=== PATIENT | male | born 1935 | race Caucasian/White ===

== ENCOUNTER 2024-03-04 00:58 | Inpatient (IN) | payer MEDICARE, BC, SELFPAY ==
[2024-03-03 18:47] VITALS: BP 137/94; BMI 24.4
[2024-03-03 19:06] LABS: % Basophils 0.4 % (0-2); % Eosinophils 1.5 % (0-6); % Immature Granulocytes 0.3 % (0-0.5); % Lymphocytes 12.5 % (20.5-51.1); % Monocytes 7.2 % (1.7-9.3); % Neutrophils 78.1 % (42.2-75.2); Absolute Basophils 0.1 10^3/uL (0-0.2); Absolute Eosinophils 0.2 10^3/uL (0-0.7); Absolute Lymphocytes 1.7 10^3/uL (1.2-3.4); Absolute Neutrophils 10.6 10^3/uL (1.4-6.5); Hemoglobin 13.7 g/dL (13.0-18.0); Mean Corp Hgb Conc. 36.1 g/dL (33.0-37.0); Mean Corpuscular Hgb 31.7 pg (27.0-31.0); Mean Platelet Volume 10.3 fL (7.4-10.4); Nucleated Red Blood Cells % 0 % (-); Platelet Count 169 10^3/uL (130-400); Red Blood Cell Count 4.32 10^6/uL (4.70-6.10); Red Cell Dist. Width 12.7 % (11.5-14.5); White Blood Cell Count 13.5 10^3/uL (4.8-10.8)
[2024-03-03 19:28] LABS: ALT (SGPT) 29 U/L (0-50); AST (SGOT) 31 U/L (17-59); Albumin 4.3 g/dl (3.5-5.0); Alkaline Phosphatase 74 U/L (38-126); Blood Urea Nitrogen 22 mg/dl (9-20); Calcium 9.4 mg/dl (8.4-10.2); Carbon Dioxide 26 mmol/L (22-30); Estimated Creatinine Clearance 78 ml/min; Glucose 127 mg/dl (70-99); eGFR > 60.00
--- NOTE | 2024-03-03 19:58 | ED.GENMED ---
History of Present Illness
General
Chief Complaint: Fall
Source: patient
Exam Limitations: none
Time Seen by Provider: 03/03/24 19:38
Travel History
Have you had any contact with someone who has COVID-19?: No
Do you have any symptoms of coronavirus? Fever > 100 degrees, chills, cough, shortness of breath, sore throat, loss of taste or smell, muscle aches, or headache?: No
History of Present Illness
History of Present Illness:
This is a 88 year old male that comes in with c/o fall. States that he was carrying groceries form his car. States that he put them down as he just felt funny. State that the next thing he knew he fall face down and couldn't stand up. States that he
believed he was conscious through the entire time but not sure. States that this happened about 3:30pm today. States that he also cut his nose. Denies any fever, chills, chest pain, SOB, abd pain, nausea, vomiting, diarrhea, headache, dizziness,
urinary burning.
Past History
Past History
ED Past Medical History: HTN, Hypercholesterolemia and [place]
ED Past Surgical History: Cardiac (Stent)
Social History
Tobacco: Non-smoker
Alcohol: Occasional
Personal:
Living: alone
Review of Systems
Review of Systems
All Other Systems: ROS reviewed and negative except as documented in HPI and ROS
Constitutional: Reports no symptoms; Denies fever or chills
EENT: Reports no symptoms
Respiratory: Reports no symptoms; Denies cough or trouble breathing
Cardiac: Reports no symptoms; Denies chest pain
ABD/GI: Reports no symptoms; Denies abdominal pain, nausea, vomiting or diarrhea
: Reports no symptoms; Denies dysuria, frequency or urgency
Musculoskeletal: Reports no symptoms
Skin: Reports other (bridge of nose abrasion)
Neurological: Reports no symptoms; Denies dizzy or headache
Psychiatric: Reports no symptoms
Phy Exam
General Physical Exam
General Presentation: no apparent distress (saw patient walk into his stretcher. )
General age: appears stated age
General Skin: warm and dry
General Habitus: elderly
General Mental: alert
General Hydration: appears well hydrated
ENT Exam
ENT Exam: TM's normal, pharynx normal and neck supple
Eye Exam
Eye Exam: EOMI
Cardiovascular Exam
Cardiovascular Exam: regular rate/rhythm, no edema and normal peripheral pulses
Pulmonary Exam
Pulmonary Exam: lungs clear, no respiratory distress, no rales, chest non tender, no crackles, no rhonchi, no wheezing and no cough
Gastrointestinal Exam
Gastrointestinal Exam: normal bowel sounds, non tender, soft, no organomegaly, no pulsatile mass and non distended
Musculoskeletal Exam
Musculoskeletal Exam: full ROM, no edema and other (Negative cervical neck tenderness or spinal tenderness. Patient move all extremites. Negative discomfort with flexion of the knee's, inversion and eversion. )
Skin Exam
Skin Exam: normal color, warm/dry, no rash, no petechia and other (Abrasion to the bridge of the nose Old contusion noted on the left lower frontal neck)
Psychiatric Exam
Psychiatric Exam: normal mood/affect
Course
Orders/Labs/Results
Orders:
Orders
03/03/24 18:51
Electrocardiogram (*1) Urgent
Reason for Study: Vertigo / Dizzy
EKG- Treatment ONCE
03/03/24 18:59
CMP [Comprehensive Metabolic Panel] Urgent
Complete Blood Count/With Diff Urgent
03/03/24 19:57
CT Cervical Spine W/o Iv Contr Urgent
Comment:
Reason For Exam: Fall, neck pain
03/03/24 19:58
CT Head W/o Iv Contrast Urgent
Comment:
Reason For Exam: Fall hitting face and head, Possible syncope
Orthostatic VS- Treatment ONCE
0.9% Sodium Chloride 500 ml [Nss] 500 ml IV BOLUS
03/03/24 20:13
Troponin I Urgent
03/03/24 20:40
Naproxen [Naprosyn] 500 mg PO NOW STA
03/03/24 22:32
Neurosurgery Consult Urgent
Consulting Provider: Chris Live
Was physician already notified: Yes
Abnormal Lab Results
03/03/24
18:59
WBC 13.5 H 10^3/uL
(4.8-10.8)
RBC 4.32 L 10^6/uL
(4.70-6.10)
Hct 38.0 L %
(39.0-52.0)
MCH 31.7 H pg
(27.0-31.0)
Absolute Neuts (auto) 10.6 H 10^3/uL
(1.4-6.5)
Absolute Monos (auto) 1.0 H 10^3/uL
(0.1-0.6)
Neutrophils % 78.1 H %
(42.2-75.2)
Lymphocytes % 12.5 L %
(20.5-51.1)
Sodium 132 L mmol/L
(135-145)
Chloride 97 L mmol/L
(98-107)
BUN 22 H mg/dl
(9-20)
Glucose 127 H mg/dl
(70-99)
03/03/24 18:59
03/03/24 18:59
Leukocytosis, Dehydration. Glucose nonfasting. Troponin <0.012
Vital Signs
Initial and Last Documented VS:
Initial Vital Signs
Temp Pulse Resp BP Pulse Ox
98.5 F 84 16 137/94 95
03/03/24 18:47 03/03/24 18:47 03/03/24 18:47 03/03/24 18:47 03/03/24 18:47
Last Documented Vital Signs
Temp Pulse Resp BP Pulse Ox
98.5 F 84 16 137/94 95
03/03/24 18:47 03/03/24 18:47 03/03/24 18:47 03/03/24 18:47 03/03/24 18:47
Flight Operations Specialist consulted with Physician
Flight Operations Specialist consulted with physician?: Yes
Name of Physician Consulted: Dr. Jim
MDM/Problems Addressed
Differential Diagnosis Includes:
Syncope, Fall ,
MDM/Problems Addressed:
This is a 88 year old male that comes in with c/o fall. States that he wad bringing in groceries and he felt funny so he put them down. States that he then fell forward hitting his face. states that he was unable to get up. States that he believes
he was awake the whole time but no sure.
Will get labs. CT head and neck, give IV fluids and ECG. Will also get Orthostatic vitals.
CT cervical spine cont- Mild spinal cord compression and central canal stenosis. Severe bilateral neural foraminal narrowing at C4/C5. Bilateral osseous fusion across the C2/C3 and C3/C4 facet joints .
back to see patient and family. Patient was orthostatic when checked. Patient was given IV fluids. Explained that his CT shows that there could be a fracture of the cervical spine. Will place patient on a Collar and admit to hospitalist. Will also
place Neurosurgery on Consult
Chronic conditions affecting care:
NA
Acute Exacerbation and/or Progression of Chronic Illness:
NA
*Radiology
Radiology exam reviewed: radiology read reviewed (CT head-NO CTA evidence for acute intracranial hemorrhage, calvarial frcture, or scalp soft tissue hematoma. 2.9cm partially calcified extra-axial mass in the medial aspect of the right middle
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 7.5mm chronic lacunar infarct in the left
caudate nucleus. 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 CT cervical spine-Subacute to chronic transverse nondisplaced Type II dens fracture with a large ) and other (CT cont amount of sclerosis surrounding
the fracture line. Severe thickening of the transverse ligament posterior to the dens causing mild spinal cord compession. Moder multilvel discogenic degenerative disease throughout the cervical spine with multilevel disc-osteophyte complexes
causing mild s)
*Pulse Oximetry
Patient hypoxic: no
*EKG
Interpreted by ED Provider?: Yes
Heart Rate: 82
Rate: normal
Rhythm: sinus and PVC's
[place]: normal axis
Interval: normal interval
QRS Pattern: right bundle branch block
Ischemia: no ischemia
*Critical Care Note
Total Time (30-74mins, 75-104mins- exclusive of procedures): Not Applicable
ED Attending Note
-
Portions of this chart may have been created with voice recognition software.� Occasional wrong word or��sound alike� substitutions may have occurred due to the inherent limitations of voice recognition software.
Discharge Plan
Departure
Patient Disposition: Admit
Date of Disposition: 03/03/24
Time of Disposition: 22:35
Admit to: Med/Surg
Presentation/result/management discussed w/ accepting MD/DO: Hospitalist
Patient with high blood pressure during this ER visit?: Yes
Condition: Good
Covid-19: Not Applicable
Discharge Problem:
Syncope, Cervical spine fracture
Referrals:
Anne Franz MD [Family Provider] -
Interventions
Interventions:
*Risk Screen - Suicide Last Done: 03/03/24 18:47
*General Assessment Last Done: 03/03/24 19:51
*Neglect/Abuse Screening Last Done: 03/03/24 18:47
*ED COVID-19 Vaccine History Last Done: 03/03/24 18:47
ED-Musculoskeletal Assessment Last Done: 03/03/24 19:51
ED- Neurological Assessment Last Done: 03/03/24 19:51
ED-Skin Assessment Last Done: 03/03/24 19:51
Discharge Date and Time
Print Language: TURKISH
[2024-03-03 20:02] LABS: Chloride 97 mmol/L (98-107); Potassium 3.9 mmol/L (3.5-5.1); Sodium 132 mmol/L (135-145)
[2024-03-03] MEDS: NSS 500 IV (20:16)
[2024-03-03 20:47] LABS: Troponin I < 0.012 ng/ml
[2024-03-03 21:05] VITALS: BP 135/80; BP 167/86; BP 168/84; PULSE 76; PULSE 82
[2024-03-03] MEDS: NAPROSYN 500 MG PO (21:09)
[2024-03-03 22:20] VITALS: BP 130/80; BP 145/90; BP 177/71; PULSE 73; PULSE 77; PULSE 81
[2024-03-03 22:55] VITALS: BP 111/75
[2024-03-04] VITALS (19 sets, daily range): BP systolic 107–182; BP diastolic 62–90; PULSE 53–92
--- NOTE | 2024-03-04 00:46 | HPS.HSE ---
Family Physician
-
Family Physician: Anne Franz
Chief Complaint
-
Fall / Neck Pain
History of Present Illness
Patient is an 88y M with PMH significant for ASCVD and hypertension who presents to ED complaining of neck pain s/p fall today. Patient states that he walked into town to the grocery store and then walked home with his groceries. Once he
arrived at home, patient states that he began to feel 'woozy' or 'lightheaded'. He was able to set his groceries down. When he stood upright again, he fell forward and was unable to catch himself. He fell onto his face without breaking his fall.
He does not believe that he lost consciousness for any period. He noted pain in the head and back of the neck immediately after the fall.
Patient denies any prodrome of chest pain, palpitations, diaphoresis, nausea, etc prior to the fall.
He denies any numbness, tingling or weakness of the extremities. He has not been incontinent of bowel or bladder.
Patient reports a similar episode that occurred one year ago while he was living in [place]. He again fell forward and struck his head at that time. He states that he was hospitalized for about a week and diagnosed with UTI, COVID and a minor
heart attack. He had another episode shortly after moving to [place] (January 2023) wherein he became lightheaded after a similar walk into town. His family members were able to assist him to the ground on that occasion and he suffered no
injury.
Patient denies any recent symptoms of illness including cough, dyspnea, fevers / chills, etc.
He denies any recent changes in his medications.
Medical History
Past Medical History
Past Medical History: Reports Other
Additional Past Medical History:
ASCVD
Anxiety / Depression
BPH
Past Surgical History: Reports Other
Additional Past Surgical History:
PTCA with Stent
Social History
Tobacco: Non-smoker
Alcohol: Occasional
Drug: None
Family History
Family History: Not pertinent
Allergies / Home Medications
Allergies reflects when Allergies were last updated in [employer].
Home Medications with original date entered in [employer]
Allergy/Medication List:
Allergies
Allergy/AdvReac Type Severity Reaction Status Date / Time
No Known Allergies Allergy Unverified 03/03/24 18:48
Home Medications
aspirin 81 mg tablet,delayed release 81 mg PO DAILY 03/03/24
carvedilol 3.125 mg tablet 3.125 mg PO HS 03/03/24
rosuvastatin 40 mg tablet 40 mg PO HS 03/03/24
sertraline 100 mg tablet 100 mg PO HS 03/03/24
sertraline 50 mg tablet 50 mg PO HS 03/03/24
tamsulosin 0.4 mg capsule 0.4 mg PO HS 03/03/24
Review of Systems
-
History Source: Patient
A 12 point ROS was completed and negative except as noted: Yes
Constitutional: Denies Fever, Fatigue or Chills
EENT: Denies Sore Throat or Runny Nose
Respiratory: Denies Cough or Trouble Breathing
Cardiac: Reports Syncope (?); Denies Chest Pain, Diaphoresis or Palpitations
Abdomen/GI: Denies Abdominal Pain, Nausea, Vomiting or Diarrhea
: Denies Dysuria, Frequency or Flank Pain
Musculoskeletal: Reports Other (Neck Pain); Denies Joint Pain or Muscle Pain
Neurological: Reports Headache; Denies Dizzy, Weakness or Numbness
Psych: Denies Depression or Anxiety
Physical Exam
Vital Signs
Vital Signs
Temp Pulse Resp BP Pulse Ox
98.5 F 72 20 111/75 94
03/03/24 18:47 03/04/24 00:15 03/04/24 00:15 03/03/24 22:55 03/04/24 00:15
Physical Exam
General: Other (88y M in no acute distress.)
HEENT: Moist mucous membranes, PERRLA and Other (Soft cervical collar in place.)
Respiratory: Clear; No Wheezes, Rales or Rhonchi
Cardiac: S1/S2 and Regular Rhythm (with ectopy.); No Murmur
GI: Soft, Non Tender, Non Distended and Normal Bowel Sounds
Musculoskeletal: No Clubbing, No Cyanosis and No Edema
Skin: Other (Abrasion / superficial laceration over the bridge of the nose with dressing in place.)
Neuro: AO x 3 and Nonfocal/grossly intact
Laboratory Results
-
03/03/24 18:59
03/03/24 18:59
Laboratory Results
Total Bilirubin 1.0 mg/dl (0.2-1.3) 03/03/24 18:59
AST 31 U/L (17-59) 03/03/24 18:59
ALT 29 U/L (0-50) 03/03/24 18:59
Alkaline Phosphatase 74 U/L (38-126) 03/03/24 18:59
Troponin I < 0.012 ng/ml 03/03/24 20:13
Impression/Plan
-
A/P: Patient is an 88y M with PMH significant for ASCVD and anxiety / depression who presents to ED s/p fall at home earlier today.
Fall at Home
- Admit for further evaluation and treatment.
- EKG with NSR and occasional PVCs. More ectopy noted on monitor during my exam.
- Monitor on tele overnight as suspicion for syncopal event despite patient stating he did not lose consciousness.
- Follow for any arrhythmia, recurrent lightheadedness, etc.
- IVFs overnight.
- PT / OT evals in the AM.
C2 Fracture
- Suspect that this is older than this afternoon based on radiographic appearance.
- ? secondary to his fall from one year ago with similar mechanism of injury?
- Regardless, given neck pain and acute fall will keep collar in place.
- Neurosurgery evaluation in the AM for additional review / recommendations.
- Monitor for any neurologic changes, etc.
ASCVD
- Stable. No complaints of chest pain, dyspnea, etc.
- Continue current CV med regimen.
BPH
- Stable. Hold tamsulosin for now given risk of orthostasis.
Anxiety / Depression
- Stable. Continue sertraline.
DVT Prophylaxis: SCDs
Code Status: Full
[2024-03-04] MEDS: LR 1000 IV (04:00)
[2024-03-04] MEDS: ULTRAM 50 MG PO (04:17)
[2024-03-04 06:20] LABS: Hematocrit 36.4 % (39.0-52.0); Hemoglobin 12.7 g/dL (13.0-18.0); Mean Corp Hgb Conc. 34.9 g/dL (33.0-37.0); Mean Corpuscular Hgb 31.1 pg (27.0-31.0); Mean Corpuscular Volume 89.2 fL (80.0-94.0); Mean Platelet Volume 11.1 fL (7.4-10.4); Platelet Count 148 10^3/uL (130-400); Red Blood Cell Count 4.08 10^6/uL (4.70-6.10); Red Cell Dist. Width 12.6 % (11.5-14.5); White Blood Cell Count 8.5 10^3/uL (4.8-10.8)
[2024-03-04 06:39] LABS: Blood Urea Nitrogen 19 mg/dl (9-20); Calcium 9.2 mg/dl (8.4-10.2); Carbon Dioxide 25 mmol/L (22-30); Chloride 101 mmol/L (98-107); Estimated Creatinine Clearance 91 ml/min; Glucose 106 mg/dl (70-99); Potassium 3.6 mmol/L (3.5-5.1); Sodium 136 mmol/L (135-145); eGFR > 60.00
[2024-03-04 07:10] LABS: TSH Reflex To Free T4 0.86 uIU/ml (0.47-4.68)
[2024-03-04] MEDS: ASPIR LOW (ENTERIC COATED) 81 MG PO (09:26)
[2024-03-04] MEDS: COLACE 100 MG PO (09:26)
--- NOTE | 2024-03-04 10:15 | W.PN.HOSP.TC ---
Today's Communication/Plan
-
repeat orthostats
consider Demond hose if remain positive (patient questioning need for them now)
F/U neurosurgery eval
PT/OT
diet ordered
Assessment / Plan
Assessment / Plan
A/P: Patient is an 88y M with PMH significant for ASCVD and anxiety / depression who presents to ED s/p fall at home earlier today.
Cervical Spine CT
IMPRESSION:
1. SUBACUTE to CHRONIC transverse nondisplaced TYPE II DENS FRACTURE with a large amount of sclerosis surrounding the fracture line. Severe thickening of the transverse ligament posterior to the dens causing mild spinal cord compression.
2. Moderate multilevel discogenic degenerative disease throughout the cervical spine with multilevel disc-osteophyte complexes causing mild spinal cord compression and central canal stenosis.
3. Severe bilateral neural foraminal narrowing at C4/C5.
4. Bilateral osseous fusion across the C2/C3 and C3/C4 facet joints.
CT HEAD
IMPRESSION:
1. No CT evidence for acute intracranial hemorrhage, calvarial fracture, or scalp soft tissue hematoma.
2. 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
3. 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
4. 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
Fall at Home
Orthostatic Hypotension
- EKG with NSR and occasional PVCs.
- Monitor on tele overnight as suspicion for syncopal event despite patient stating he did not lose consciousness.
- orthostats positive; repeat orthostats this AM
- s/p IVFs overnight.
- PT / OT evals in the AM.
C2 Fracture
- Suspect that this is older than this afternoon based on radiographic appearance.
- ? secondary to his fall from one year ago with similar mechanism of injury?
- Regardless, given neck pain and acute fall will keep collar in place.
- Neurosurgery evaluation in the AM for additional review / recommendations.
- Monitor for any neurologic changes, etc.
ASCVD
- Stable. No complaints of chest pain, dyspnea, etc.
- Continue current CV med regimen.
BPH
- Stable. Hold tamsulosin for now given risk of orthostasis.
Anxiety / Depression
- Stable. Continue sertraline.
DVT Prophylaxis: SCDs
Code Status: Full
Anticipated Discharge: 24 - 48 hours
Subjective/Interval History
-
Date of Service: March 04, 2024
has some neck pain otherwise feeling ok
remains in brace
Objective Data
-
Labs:
Laboratory Results
03/04/24
06:00
WBC 8.5
Hgb 12.7 L
Hct 36.4 L
Plt Count 148
Sodium 136
Potassium 3.6
Chloride 101
Carbon Dioxide 25
BUN 19
Creatinine 0.6 L
Glucose 106 H
Calcium 9.2
Vital Signs:
Vital Signs
Temp Pulse Resp BP Pulse Ox
97.6 F 55 15 147/69 94
03/04/24 03:36 03/04/24 03:53 03/04/24 03:53 03/04/24 03:53 03/04/24 03:45
Review of Systems
-
History Source: Patient
All other systems: Reviewed and negative
Physical Exam
-
General: Conversant
HEENT: Other (neck brace in place, TEJAS, nasal contusion with bandaid)
Respiratory: Clear to Auscultation; Negative Wheezes
Cardiac: Regular Rhythm and S1/S2
GI: Soft and Nontender
Musculoskeletal: No Edema
Skin: Warm and Dry; Negative Rash
Neuro: AO x 3
Psych: Calm
Data Reviewed
-
Diagnostic Radiology: Report Reviewed by me
Labs: Labs Reviewed by me
[2024-03-04] MEDS: NSS 500 IV (12:24)
--- NOTE | 2024-03-04 13:36 | CON.NS ---
Chief Complaint
-
C2 fracture
History of Present Illness
This is an 88-year-old male admitted status post fall. He is unsure if he syncopized. He states he was carrying groceries when he felt funny and fell. Struck his face. He was complaining of neck pain upon presentation. Currently denies any
radicular symptoms. Denies any weakness in his upper or lower extremities. Denies any bowel or bladder problems. Denies any balance issues. He notes that he has chronic neck pain. He has sought out conservative therapy in the past. He did have
an MRI of the cervical spine about a year ago. A new CT of the cervical spine was completed upon presentation first trauma.
Review of Systems
-
10 point review of systems completed negative except stated in HPI.
Medication and Allergies
Home Medications
Home Medications
�Medication �Instructions �Recorded
aspirin 81 mg tablet,delayed 81 mg PO DAILY Blood Clot 03/03/24
release Prevention/Tx
carvedilol 3.125 mg tablet 3.125 mg PO HS Blood Pressure 03/03/24
rosuvastatin 40 mg tablet 40 mg PO HS High Cholesterol 03/03/24
sertraline 100 mg tablet 100 mg PO HS Mental Health 03/03/24
sertraline 50 mg tablet 50 mg PO HS Mental Health 03/03/24
tamsulosin 0.4 mg capsule 0.4 mg PO HS Urinary Issue 03/03/24
Allergies
Allergies
Allergy/AdvReac Type Severity Reaction Status Date / Time
No Known Allergies Allergy Unverified 03/03/24 18:48
Physical Exam
-
Exam:
Awake alert and oriented x 3
GCS 15
Moving all extremities times 4 with 5 out of 5 strength
Respirations even labored
Peripheral pulses palpable
Sensation was grossly intact
Reflexes normal
No Dave's, no clonus
No cerebellar findings
Cranials [address] cervical spine reveals sclerotic type II odontoid fracture. This has the appearance of a chronic fracture. Alignment is maintained at the C1-C2 articulations.
Problems
-
Problem Status Onset Code
Cervical spine fracture S12.9XXA
Syncope R55
Assessment / Plan
-
C2 fracture
1. Patient is comfortable in soft cervical collar. This will be adequate given the likely chronicity of his fracture. He will maintain neck collar at all times. He is cleared to remove it for hygiene.
2. No acute neurosurgical interventions
3. Patient will follow-up in the office in 6 weeks for reevaluation.
4. Cleared to discharge from neurosurgical perspective.
--- NOTE | 2024-03-04 15:54 | PTCARENOTE ---
Pt arrived to [facility] from ED as a hold s/p fall/cervical fx. Pt in soft cervical collar, AAOx3, pt states no pain at this time. Pt oriented to call noel and room, bed locked and in lowest position, call noel within reach.
[2024-03-04] MEDS: COLACE PO (21:29)
[2024-03-04] MEDS: ZOLOFT 150 MG PO (21:36)
[2024-03-04] MEDS: COREG 3.125 MG PO (21:36)
[2024-03-04] MEDS: CRESTOR 40 MG PO (21:37)
[2024-03-05 03:30] VITALS: BP 167/74
[2024-03-05 05:44] VITALS: BMI 23.9
[2024-03-05 06:00] VITALS: BMI 23.9
[2024-03-05 07:01] LABS: Cortisol, Random 8.4 ug/dl
[2024-03-05 07:18] VITALS: BP 188/76
--- NOTE | 2024-03-05 08:27 | W.PN.HOSP.TC ---
Today's Communication/Plan
-
ACTH stim test
Assessment / Plan
Assessment / Plan
A/P: Patient is an 88y M with PMH significant for ASCVD and anxiety / depression who presents to ED s/p fall at home earlier today.
Cervical Spine CT
IMPRESSION:
1. SUBACUTE to CHRONIC transverse nondisplaced TYPE II DENS FRACTURE with a large amount of sclerosis surrounding the fracture line. Severe thickening of the transverse ligament posterior to the dens causing mild spinal cord compression.
2. Moderate multilevel discogenic degenerative disease throughout the cervical spine with multilevel disc-osteophyte complexes causing mild spinal cord compression and central canal stenosis.
3. Severe bilateral neural foraminal narrowing at C4/C5.
4. Bilateral osseous fusion across the C2/C3 and C3/C4 facet joints.
CT HEAD
IMPRESSION:
1. No CT evidence for acute intracranial hemorrhage, calvarial fracture, or scalp soft tissue hematoma.
2. 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
3. 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
4. 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
Fall at Home
Orthostatic Hypotension
- EKG with NSR and occasional PVCs.
- orthostats positive; s/p fluids and cameron hose
- PT / OT eval - HH ordered
- cortisol low this morning at 8 --> ACTH stim test ordered
C2 Fracture
- Suspect that this is older than this afternoon based on radiographic appearance.
- ? secondary to his fall from one year ago with similar mechanism of injury?
- appreciate Neurosurgery evaluation
ASCVD
- Stable. No complaints of chest pain, dyspnea, etc.
- Continue current CV med regimen.
BPH
- Stable. Hold tamsulosin for now given risk of orthostasis. confirm if patient was taking this
Anxiety / Depression
- Stable. Continue sertraline.
DVT Prophylaxis: SCDs
Code Status: Full
Anticipated Discharge: Within 24 hours
Subjective/Interval History
-
Date of Service: March 05, 2024
feeling well this morning
no dizziness
pain controlled
Objective Data
-
Vital Signs:
Vital Signs
Temp Pulse Resp BP Pulse Ox
97.6 F 53 14 188/76 95
03/05/24 07:18 03/05/24 07:18 03/05/24 07:18 03/05/24 07:18 03/05/24 07:18
I&O
03/04/24 03/05/24 03/06/24
06:59 06:59 06:59
Intake Total 1200 / 1200
Balance 1200 / 1200
Review of Systems
-
History Source: Patient
All other systems: Reviewed and negative
Physical Exam
-
General: Conversant
HEENT: Other (neck brace in place, TEJAS, nasal contusion with bandaid)
Respiratory: Clear to Auscultation; Negative Wheezes
Cardiac: Regular Rhythm and S1/S2
GI: Soft and Nontender
Musculoskeletal: No Edema
Skin: Warm and Dry; Negative Rash
Neuro: AO x 3
Psych: Calm
Data Reviewed
-
Diagnostic Radiology: Report Reviewed by me
Labs: Labs Reviewed by me
[2024-03-05] MEDS: ASPIR LOW (ENTERIC COATED) 81 MG PO (09:12)
[2024-03-05] MEDS: COLACE PO (09:14)
[2024-03-05 10:01] LABS: ACTH Stim Cortisol 0 Min 10.4 ug/dl
[2024-03-05] MEDS: NSS (PRESERVATIVE FREE) 1 ML IV (10:43)
[2024-03-05] MEDS: CORTROSYN 0.25 MG IV (10:43)
[2024-03-05 11:49] VITALS: BP 174/75
[2024-03-05 13:06] LABS: ACTH Stim Cortisol 60 Min 29.6 ug/dl
--- NOTE | 2024-03-05 13:21 | W.DS.TRANS ---
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
-
Discharge Instructions:
Discharge Diagnosis/Procedures fall, orthostatic hypotension; likely old C2
fracture
Diet Regular
Activity As tolerated
Additional Activity Your blood pressure drops when you go from
laying to sitting to standing. Always go very
slowly when changing from laying to sitting to
standing position. Wait a full 2 minutes prior
to continuing to change positions and prior to
walking. If you feel dizzy then sit or lay back
down. If you walk for extended periods of time
, please use a walker so you have something to
rest on.
Wear your cameron hose to help with circulation.
Dehydration can exacerbate blood pressure drop.
Make sure to drink 6-8 glasses of water per day
. Better to also include water with
electrolytes (such as Gatorade/Pedialyte) to
keep electrolytes normal.
Continue to wear soft neck collar at all times.
It is okay to take it off for hygiene. You
will follow up with Dr. Live in 6 weeks.
Driving Restrictions No driving
Bathing Restrictions None
Other Services VN,PT,OT
Instructions: Orthostatic hypotension
Stand-Alone Forms:
Changes to Home Medications: Yes
Discharge Medications:
DC Medications w/original date entered in [employer]
aspirin 81 mg tablet,delayed release 81 mg PO DAILY Blood Clot Prevention/Tx 03/03/24
carvedilol 3.125 mg tablet 3.125 mg PO HS Blood Pressure 03/03/24
rosuvastatin 40 mg tablet 40 mg PO HS High Cholesterol 03/03/24
sertraline 100 mg tablet 100 mg PO HS Mental Health 03/03/24
sertraline 50 mg tablet 50 mg PO HS Mental Health 03/03/24
naproxen 500 mg tablet 500 mg PO BID PRN Pain #8 tabs 03/05/24
Home Medication Changes
You may take Naproxen for pain (this is a little more than 2 pills of Aleve). Always take NSAIDs (aleve, motrin, Naproxen) with food.
Stop flomax as this may worsen orthostatic hypotension - if you have urinary issues please follow up with your Urologist.
Pending Results: No
--- NOTE | 2024-03-05 13:58 | W.DCSUMMARY ---
Discharge Summary
Discharge Data
Date of Admission: 03/04/24
Date of Discharge: 03/05/24
-
Pending Results: No
Hospital Course
Discharging Physician : Dr. Theresa Canela
Disposition : Home with HH
Primary care physician : Dr. Anne Franz
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
Hospital Course :
Patient is an 88y M with PMH significant for ASCVD and hypertension who presents to ED complaining of neck pain s/p fall earlier that day. Patient fell after coming home from grocery shopping when he began to feel lightheaded and was unable to
catch himself. Triage vitals stable. Labs with WBC 13.5. Head CT with finding of C2 fracture that appeared chronic. He was kept in a neck brace and admitted to medicine with neurosurgery consulting.
Patient was evaluated by Dr. Live the following morning who advised to continue soft neck collar at all times; OK to take off for hygiene. He will follow up in 6 weeks. Per patient and daughter request, he is prescribed Naproxen 500mg BID
PRN pain.
Regarding etiology of fall, it was found that patient had significant orthostatic vital signs. Mild improvement post fluids but persisted. 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 AM cortisol was low but ACTH stim test negative for adrenal
insufficiency. Patient is discharge with education about avoiding dehydration, continued use of cameron hose and moving very slowly when going from laying to sitting to standing to walking. Daughter updated as well.
Time spent on discharge was 35 minutes.
Important imaging findings :
HEAD CT
IMPRESSION:
1. No CT evidence for acute intracranial hemorrhage, calvarial fracture, or scalp soft tissue hematoma.
2. 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
3. 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
4. 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
Procedure findings :
Discharge Plan
-
Patient Disposition: Home with Home Care
Discharge Diagnosis/Procedures: fall, orthostatic hypotension; likely old C2 fracture
Diet: Regular
Activity: As tolerated
Additional Activity: Your blood pressure drops when you go from laying to sitting to standing. Always go very slowly when changing from laying to sitting to standing position. Wait a full 2 minutes prior to continuing to change positions and prior
to walking. If you feel dizzy then sit or lay back down. If you walk for extended periods of time, please use a walker so you have something to rest on.
Wear your cameron hose to help with circulation.
Dehydration can exacerbate blood pressure drop. Make sure to drink 6-8 glasses of water per day. Better to also include water with electrolytes (such as Gatorade/Pedialyte) to keep electrolytes normal.
Continue to wear soft neck collar at all times. It is okay to take it off for hygiene. You will follow up with Dr. Live in 6 weeks.
Driving Restrictions: No driving
Bathing Restrictions: None
Other Services: VN, PT and OT
Instructions: Orthostatic hypotension
Referrals:
Chris Live, DO [Active] - (Follow up in 6 weeks)
Anne Franz MD [Family Provider] - in less than 1 week
Additional Discharge Medication Instructions: You may take Naproxen for pain (this is a little more than 2 pills of Aleve). Always take NSAIDs (aleve, motrin, Naproxen) with food.
Stop flomax as this may worsen orthostatic hypotension - if you have urinary issues please follow up with your Urologist.
Prescriptions:
New
naproxen 500 mg tablet
500 mg PO BID PRN (Reason: Pain) Qty: 8 0RF
Rx Instructions:
Always take with food
Continued
sertraline 100 mg tablet
100 mg PO HS
Patient Comments:
03/03/2024: taken w/ 50mg = 150mg
aspirin 81 mg Tablet,Delayed Release (Dr/Ec)
81 mg PO DAILY
carvedilol 3.125 mg tablet
3.125 mg PO HS
Patient Comments:
03/03/2024: Double checked with pt, that script from pharmacy stated 'twice daily' pt confirmed he is only taking at night.
sertraline 50 mg tablet
50 mg PO HS
Patient Comments:
03/03/2024: taken w/ 100mg = 150mg
rosuvastatin 40 mg tablet
40 mg PO HS
Discontinued
tamsulosin 0.4 mg capsule
0.4 mg PO HS
Discharge Orders:
Discharge Patient (As Directed); Ordered 03/05/24
Ordered By: Theresa Cnaela
Discharge Date and Time
Print Language: UGANDAN
--- NOTE | 2024-03-05 14:54 | CM ---
Alert awake oriented patient who lives alone at [facility] with 4 steps to eter and 5 to apartment. Spoke with dgt Leigha she confirmed mfor and requested [facility] . Referral placed in care port.Daughter drove him home.Req [facility] .
No VN hx /No SNF
Pharmacin [facility]
PCP DR Franz
PLAN Home with [facility] if accepted
== END 2024-03-05 14:10 | disposition home health service (06) | DRG 552 ==
LOC: 2 SOUTH 00:58
PROVIDERS: Clinical Nurse Specialist Family Health; Emergency Medicine; ADMITTING PHYSICIAN Hospitalist; ATTENDING PHYSICIAN Student in an Organized Health Care Education/Training Program; EMERGENCY PHYSICIAN Emergency Medicine; FAMILY PHYSICIAN Family Medicine; OTHER PHYSICIAN Neurological Surgery
DX: S12.100A Unspecified displaced fracture of second cervical vertebra, initial encounter for closed fracture (principal); I95.1 Orthostatic hypotension; M54.2 Cervicalgia; E78.00 Pure hypercholesterolemia, unspecified; I10 Essential (primary) hypertension; D72.829 Elevated white blood cell count, unspecified; G89.29 Other chronic pain; E86.0 Dehydration; I45.10 Unspecified right bundle-branch block; I25.10 Atherosclerotic heart disease of native coronary artery without angina pectoris; F32.A Depression, unspecified; F41.9 Anxiety disorder, unspecified; N40.0 Benign prostatic hyperplasia without lower urinary tract symptoms; W18.39XA Other fall on same level, initial encounter; Y93.89 Activity, other specified; Y92.000 Kitchen of unspecified non-institutional (private) residence as the place of occurrence of the external cause; I25.2 Old myocardial infarction; Z95.5 Presence of coronary angioplasty implant and graft; Z86.73 Personal history of transient ischemic attack (TIA), and cerebral infarction without residual deficits
CPT/HCPCS: 70450; 72125; 80048; 80053; 82533; 84443; 84484; 85025; 85027; 93005; 93306; 96360; 99285

== ENCOUNTER 2024-06-12 16:18 | Emergency (ER) | payer MEDICARE, BC, SELFPAY ==
[2024-06-12 16:22] VITALS: BP 162/66
[2024-06-12 17:24] VITALS: BMI 16.9
--- NOTE | 2024-06-12 17:32 | ED.GENMED ---
History of Present Illness
<Nino Drummond DO - Last Filed: 06/12/24 19:54>
General
Chief Complaint: Skin Surface Trauma
Time Seen by Provider: 06/12/24 17:18
<Ajith Riggs MD, Resident - Last Filed: 06/12/24 19:38>
History of Present Illness
History of Present Illness:
88-year-old male presented to the ED after a mechanical fall. Patient states that he was at a grocery store shopping and he tripped over the shopping cart. He fell forward hitting his head and his nose. He has a laceration on on frontal area near
the hairline and an abrasion on anterior surface of his nose. He denies LOC, headache, vision changes. 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
Past History
<Ajith Riggs MD, Resident - Last Filed: 06/12/24 19:38>
Past History
ED Past Medical History: HTN, Hypercholesterolemia and [place]
ED Past Surgical History: Cardiac (Stent)
Social History
Tobacco: Non-smoker
Alcohol: Occasional
Personal:
Living: alone
Phy Exam
<Ajith Riggs MD, Resident - Last Filed: 06/12/24 19:38>
General Physical Exam
General Presentation: well appearing and no apparent distress
Eye Exam
Eye Exam: PERRL
Cardiovascular Exam
Cardiovascular Exam: regular rate/rhythm
Pulmonary Exam
Pulmonary Exam: lungs clear
Neurological Exam
Neurological Exam: alert and oriented x3
Skin Exam
Skin Exam: other (3-4 cm laceration frontal area, 3-4 cm nasal abrasion)
Course
<Nino Drummond DO - Last Filed: 06/12/24 19:54>
Orders/Labs/Results
Orders:
Orders
06/12/24 17:31
CT Head W/o Iv Contrast Urgent
Comment:
Reason For Exam: head trauma
06/12/24 17:33
CT Cervical Spine W/o Iv Contr Urgent
Comment:
Reason For Exam: fall
CT Facial Bones W/o Iv Contras Urgent
Comment:
Reason For Exam: fall
Tetanus/Diphth/Acelpertussis [Adacel] 0.5 ml IM .ONCE ONE
06/12/24 19:51
Cervical Collar- Treatment ONCE
Collar Type: Soft Cervical Collar
Vital Signs
Initial and Last Documented VS:
Initial Vital Signs
Temp Pulse Resp BP Pulse Ox
97.9 F 54 16 162/66 98
06/12/24 16:22 06/12/24 16:22 06/12/24 16:22 06/12/24 16:22 06/12/24 16:22
Last Documented Vital Signs
Temp Pulse Resp BP Pulse Ox
98.5 F 60 16 144/61 96
06/12/24 19:41 06/12/24 19:41 06/12/24 19:41 06/12/24 19:41 06/12/24 19:41
<Ajith Riggs MD, Resident - Last Filed: 06/12/24 19:38>
Orders/Labs/Results
Orders:
Orders
06/12/24 17:31
CT Head W/o Iv Contrast Urgent
Comment:
Reason For Exam: head trauma
06/12/24 17:33
CT Cervical Spine W/o Iv Contr Urgent
Comment:
Reason For Exam: fall
CT Facial Bones W/o Iv Contras Urgent
Comment:
Reason For Exam: fall
Tetanus/Diphth/Acelpertussis [Adacel] 0.5 ml IM .ONCE ONE
06/12/24 19:51
Cervical Collar- Treatment ONCE
Collar Type: Soft Cervical Collar
Vital Signs
Initial and Last Documented VS:
Initial Vital Signs
Temp Pulse Resp BP Pulse Ox
97.9 F 54 16 162/66 98
06/12/24 16:22 06/12/24 16:22 06/12/24 16:22 06/12/24 16:22 06/12/24 16:22
Last Documented Vital Signs
Temp Pulse Resp BP Pulse Ox
98.5 F 60 16 144/61 96
06/12/24 19:41 06/12/24 19:41 06/12/24 19:41 06/12/24 19:41 06/12/24 19:41
Alexandrialt;Yohana Spann PA-C - Last Filed: 06/12/24 18:48>
Orders/Labs/Results
Orders:
Orders
06/12/24 17:31
CT Head W/o Iv Contrast Urgent
Comment:
Reason For Exam: head trauma
06/12/24 17:33
CT Cervical Spine W/o Iv Contr Urgent
Comment:
Reason For Exam: fall
CT Facial Bones W/o Iv Contras Urgent
Comment:
Reason For Exam: fall
Tetanus/Diphth/Acelpertussis [Adacel] 0.5 ml IM .ONCE ONE
06/12/24 19:51
Cervical Collar- Treatment ONCE
Collar Type: Soft Cervical Collar
Vital Signs
Initial and Last Documented VS:
Initial Vital Signs
Temp Pulse Resp BP Pulse Ox
97.9 F 54 16 162/66 98
06/12/24 16:22 06/12/24 16:22 06/12/24 16:22 06/12/24 16:22 06/12/24 16:22
Last Documented Vital Signs
Temp Pulse Resp BP Pulse Ox
98.5 F 60 16 144/61 96
06/12/24 19:41 06/12/24 19:41 06/12/24 19:41 06/12/24 19:41 06/12/24 19:41
Procedures
<Yohana Spann PA-C - Last Filed: 06/12/24 18:48>
Laceration Closure
Left Forehead:
Status of Wound: clean
Size of Wound in cm: 6
Description of Wound Edges: flap-well vascularized
Preparation: cleaned with saline
Anesthesia: 1% Lidocaine with epi
Revision/Debridement: routine- no revision
Wound exploration: explored to base- no FB
Type of Closure: single layer closure
Skin Closure Material: 4-0 prolene
Number of sutures: 9
Additional information:
Patient tolerated procedure well. Small skin tear on nose was repaired with Dermabond.
<Yohana Spann PA-C - Last Filed: 06/12/24 18:48>
*Critical Care Note
Total Time (30-74mins, 75-104mins- exclusive of procedures): Not Applicable
<Nino Drummond DO - Last Filed: 06/12/24 19:54>
Update Note
Update Note:
88-year-old male presented with a mechanical fall. On physical exam there is 3 to 4 cm laceration on his frontal area near the head lying and nasal abrasion. We will do a CT scan of the head and neck to rule out any hemorrhage. There is a
possibility that this could be a nasal fracture as he fell forward hitting his head and his nose. Plan for wound closure.
Stitches need to come out in 4-5 days by family doctor. Advised to f/u with family doctor.
Update, 8 PM, CT reviewed with radiology, reviewed with neurosurgery seen her previously will place in a collar have him follow-up in the office, of note he is neurologically intact
<Ajith Riggs MD, Resident - Last Filed: 06/12/24 19:38>
Update Note
Update Note:
88-year-old male presented with a mechanical fall. On physical exam there is 3 to 4 cm laceration on his frontal area near the head lying and nasal abrasion. We will do a CT scan of the head and neck to rule out any hemorrhage. There is a
possibility that this could be a nasal fracture as he fell forward hitting his head and his nose. Plan for wound closure.
Stitches need to come out in 4-5 days by family doctor. Advised to f/u with family doctor.
ED Attending Note
<Nino Drummond DO - Last Filed: 06/12/24 19:54>
ED Attending Note
Patient seen and examined by attending physician: Yes
I performed a history and physical exam of patient and discussed management with resident, I reviewed resident's note and agree with documented findings and plan of care.: Yes
ED Attending Note:
seen with resident, examined independently, sp fall, facial injury, no loc
plan
Ct head, cspcine, facial
td updated
wound closure
<Ajith Riggs MD, Resident - Last Filed: 06/12/24 19:38>
-
Portions of this chart may have been created with voice recognition software.� Occasional wrong word or��sound alike� substitutions may have occurred due to the inherent limitations of voice recognition software.
Discharge Plan
Departure
Patient Disposition: Home (Routine Discharge)
Date of Disposition: 06/12/24
Time of Disposition: 19:52
Patient with high blood pressure during this ER visit?: No
Condition: Good
Discharge Problem:
Cervical spine fracture, Laceration
Instructions: Laceration Repair With Stitches (DC)
Prescriptions:
No Action
sertraline 100 mg tablet
100 mg PO HS
Patient Comments:
03/03/2024: taken w/ 50mg = 150mg
aspirin 81 mg Tablet,Delayed Release (Dr/Ec)
81 mg PO DAILY
carvedilol 3.125 mg tablet
3.125 mg PO HS
Patient Comments:
03/03/2024: Double checked with pt, that script from pharmacy stated 'twice daily' pt confirmed he is only taking at night.
rosuvastatin 40 mg tablet
40 mg PO HS
citalopram 20 mg Tablet
20 mg PO DAILY
Referrals:
UNKNOWN - PT DOES,NOT KNOW [Family Provider] -
Chris Live, DO [Active] - Next open appointment
Activity Restrictions/Additional Instructions:
Stitches out in 5 or 6 days by your family doctor
Use hard collar until you are seen by neurosurgeon Dr. Live call tomorrow for an appointment
Interventions
Interventions:
*Risk Screen - Suicide Last Done: 06/12/24 17:24
*General Assessment Last Done: 06/12/24 17:25
*Neglect/Abuse Screening Last Done: 06/12/24 17:24
ED- Fall Risk Assessment Last Done: 06/12/24 17:25
*ED COVID-19 Vaccine History Last Done: 06/12/24 17:25
ED-Skin Assessment Last Done: 06/12/24 19:41
Discharge Date and Time
Print Language: KINYARWANDA
[2024-06-12] MEDS: ADACEL 0.5 ML IM (17:49)
[2024-06-12 19:41] VITALS: BP 144/61
--- NOTE | 2024-06-12 20:15 | EDRN ---
No soft collars in stock in ED, Dr Drummond informed. Pt has a soft collar at home that he can use. Family with pt. Pt is going to shower when he gets home - EDT applying bandages to wounds.
== END 2024-06-12 20:19 | disposition home or self-care (01) ==
LOC: EMR 16:18
PROVIDERS: EMERGENCY PHYSICIAN Emergency Medicine
DX: S12.9XXA Fracture of neck, unspecified, initial encounter (principal); S01.81XA Laceration without foreign body of other part of head, initial encounter; W19.XXXA Unspecified fall, initial encounter; Z23 Encounter for immunization; I10 Essential (primary) hypertension; E78.00 Pure hypercholesterolemia, unspecified; I25.2 Old myocardial infarction; Z95.5 Presence of coronary angioplasty implant and graft
CPT/HCPCS: 99284; 12002; 90471; 70450; 70486; 72125; 90715

== ENCOUNTER 2024-07-14 11:51 | Outpatient (RCR) | payer MEDICARE, BC, SELFPAY | END 2024-07-14 23:59 | disposition home or self-care (01) | LOC: RPT 11:51 | PROVIDERS: ATTENDING PHYSICIAN Physician Assistant | DX: R26.9 Unspecified abnormalities of gait and mobility (principal); R42 Dizziness and giddiness; Z73.6 Limitation of activities due to disability | CPT/HCPCS: 97110; 97112; 97163 ==

== ENCOUNTER 2024-08-10 10:10 | Outpatient (RCR) | payer MEDICARE, BC, SELFPAY | END 2024-08-10 23:59 | disposition home or self-care (01) | LOC: RPT 10:10 | PROVIDERS: ATTENDING PHYSICIAN Physician Assistant | DX: R26.9 Unspecified abnormalities of gait and mobility (principal); R42 Dizziness and giddiness; Z73.6 Limitation of activities due to disability | CPT/HCPCS: 97110; 97112 ==

== ENCOUNTER → 2024-12-09 18:32 | Outpatient (REF) | payer MEDICARE, BC, SELFPAY | LOC: MRI 3T 18:32 | PROVIDERS: ATTENDING PHYSICIAN Family Medicine | DX: R44.3 Hallucinations, unspecified (principal); R41.3 Other amnesia; R26.81 Unsteadiness on feet | CPT/HCPCS: 70551 ==

== ENCOUNTER 2025-03-14 16:43 | Emergency (ER) | payer MEDICARE, BC, SELFPAY ==
[2025-03-14 16:47] VITALS: BP 154/72
[2025-03-14] MEDS: ADACEL 0.5 ML IM (17:43)
[2025-03-14 21:46] VITALS: BP 150/76
--- NOTE | 2025-03-14 22:44 | ED.MUSCINJ ---
HPI-Injury
General
Chief Complaint: Fall
Source: patient
Exam Limitations: none
Time Seen by Provider: 03/14/25 17:02
Nursing documentation reviewed up to this point in time: agreed with
History of Present Illness-Injury
Is this injury a work related problem?: No
Is pt an associate of [facility]?: No
Initial Injury comments:
Tripped and fell while walking outside. Hit face on pavement. He has a large abrasion to left forhead, abrasion and laceration to nose. No LOC. 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
Past History
Past History
ED Past Medical History: HTN, Hypercholesterolemia and [place]
ED Past Surgical History: Cardiac (Stent)
Social History
Tobacco: Non-smoker
Alcohol: Occasional
Personal:
Living: alone
Review of Systems
Review of Systems
Allergies reviewed?: Yes
All Other Systems: ROS reviewed and negative except as documented in HPI and ROS
Constitutional: Reports no symptoms
EENT: Reports no symptoms
Respiratory: Reports no symptoms
Cardiac: Reports no symptoms
ABD/GI: Reports no symptoms
: Reports no symptoms
Musculoskeletal: Reports no symptoms
Skin: Reports other (Laceration to bridge of nose. abrasion to forehead)
Neurological: Reports no symptoms
Psychiatric: Reports no symptoms
Skin Exam
Laceration
Nose:
Length in cm: 1
Orientation: vertical
Type of Laceration: simple
Any active bleeding?: no active bleeding
Distal skin color and temperature: normal-warm & good color
Normal distal neurovascular exam: Yes
Range of motion: full
Abrasion
Left Forehead:
Description of abrasion: deep/clean
Phy Exam
General Physical Exam
General Presentation: well appearing and no apparent distress
General age: appears stated age
General Skin: warm and dry
General Habitus: normal
General Mental: alert
Eye Exam
Eye Exam: PERRL, EOMI, conjunctiva normal and globe normal
Cardiovascular Exam
Cardiovascular Exam: regular rate/rhythm and no edema
Pulmonary Exam
Pulmonary Exam: no respiratory distress and chest non tender
Gastrointestinal Exam
Gastrointestinal Exam: non tender, soft, no organomegaly, no pulsatile mass, non distended and no cva tenderness
Neurological Exam
Neurological Exam: alert, oriented x3, CN II-XII intact, no motor deficits and no sensory deficits
[place] Coma Scale
Eye Opening: Spontaneous
Verbal Response: Oriented
Motor Response: Obeys Commands
GCS Total Score: 15
Musculoskeletal Exam
Musculoskeletal Exam: full ROM and neuro vasc intact
Skin Exam
Skin Exam: normal color, warm/dry, no rash and other (Large abrasion to left forehead, abrasion to nose, lacertion to nose)
Psychiatric Exam
Psychiatric Exam: normal mood/affect
Injury Course
Orders/Labs/Results
Orders:
Orders
03/14/25 17:36
CT Head W/o Iv Contrast Urgent
Comment:
Reason For Exam: fall
Cervical Spine wo Contrast CT [CT Cervical Spine W/o Iv Contr] Urgent
Comment:
Reason For Exam: fall
Tetanus/Diphth/Acelpertussis [Adacel] 0.5 ml IM .ONCE ONE
Procedures
Laceration Closure
Nose:
Status of Wound: clean
Description of Wound Edges: sharp
Preparation: cleaned with saline
Revision/Debridement: routine- no revision
Wound exploration: explored to base- no FB
Type of Closure: Dermabond-skin glue
*Radiology
Radiology exam reviewed: radiology read reviewed
*Pulse Oximetry
Patient hypoxic: no
*Critical Care Note
Total Time (30-74mins, 75-104mins- exclusive of procedures): Not Applicable
Update Note
Update Note:
CT results reviewed. He had a fall approx 1 year ago resulting in a dens fracture type II. Tonights CT showes progression of the posterior cortical fracture lucency, possibly the rsult of an acute component to the prior fracture. Patient
remains neurologically intact. He denies any neck pain. Ambulating without assistance, equal stength and sensation bilaterally. CT results discussed with Dr. Vee. Ok for discharge and outpateint neuro follow-up Patient placed in cervical collar
as requested by Dr. Slaughter and discharged home. Patient and daughter are agreeable to follow up plan
ED Attending Note
-
Portions of this chart may have been created with voice recognition software.� Occasional wrong word or��sound alike� substitutions may have occurred due to the inherent limitations of voice recognition software.
Discharge Plan
Departure
Patient Disposition: Home (Routine Discharge)
Date of Disposition: 03/14/25
Time of Disposition: 21:43
Patient with high blood pressure during this ER visit?: No
Condition: Good
Covid-19: Not Applicable
Discharge Problem:
Head injury
Instructions: Laceration Repair With Glue (DC), Head Injury in Adults (DC), Preventing falls in adults, Cervical Sprain ED
Prescriptions:
No Action
sertraline 100 mg tablet
100 mg PO HS
Patient Comments:
03/03/2024: taken w/ 50mg = 150mg
aspirin 81 mg Tablet,Delayed Release (Dr/Ec)
81 mg PO DAILY
carvedilol 3.125 mg tablet
3.125 mg PO HS
Patient Comments:
03/03/2024: Double checked with pt, that script from pharmacy stated 'twice daily' pt confirmed he is only taking at night.
rosuvastatin 40 mg tablet
40 mg PO HS
citalopram 20 mg Tablet
20 mg PO DAILY
Referrals:
Jackie Vee MD [Active] - Call in 1-3 days for appt
UNKNOWN - PT DOES,NOT KNOW [Family Provider] -
Activity Restrictions/Additional Instructions:
As we discussed, changes were seen to the fracture of your cervical spine (neck). You will need to follow up with Dr. Vee in the office for further evaluation. Please continue to wear your neck brace until discontinued by the neurosurgeon.
Interventions
Interventions:
*Risk Screen - Suicide Last Done: 03/14/25 16:47
*General Assessment Last Done: 03/14/25 16:47
*Neglect/Abuse Screening Last Done: 03/14/25 16:47
*ED COVID-19 Vaccine History Last Done: 03/14/25 16:47
*Nursing Disposition Last Done: 03/14/25 21:55
ED-Musculoskeletal Assessment Last Done: 03/14/25 17:23
ED- Neurological Assessment Last Done: 03/14/25 17:23
ED-Skin Assessment Last Done: 03/14/25 17:23
Discharge Date and Time
Discharge Date/Time: 03/14/25 21:55
Print Language: ROMANIAN
== END 2025-03-14 21:55 | disposition home or self-care (01) ==
LOC: EMR 16:43
PROVIDERS: EMERGENCY PHYSICIAN Emergency Medicine
DX: S09.90XA Unspecified injury of head, initial encounter (principal); S12.112A Nondisplaced Type II dens fracture, initial encounter for closed fracture; S01.21XA Laceration without foreign body of nose, initial encounter; S00.81XA Abrasion of other part of head, initial encounter; W01.0XXA Fall on same level from slipping, tripping and stumbling without subsequent striking against object, initial encounter; Z23 Encounter for immunization
CPT/HCPCS: 99285; 12011; 90471; 70450; 72125; 90715

== ENCOUNTER → 2025-05-24 08:51 | Outpatient (REF) | payer MEDICARE, BC, SELFPAY | LOC: RAD 08:51 | PROVIDERS: ATTENDING PHYSICIAN Physician Assistant Medical; FAMILY PHYSICIAN Family Medicine | DX: S12.100A Unspecified displaced fracture of second cervical vertebra, initial encounter for closed fracture (principal) | CPT/HCPCS: 72052 ==